=== PATIENT | male | born 1965 | race Caucasian/White ===

== ENCOUNTER 2018-05-21 09:20 | Outpatient (REF) | payer OTHER, SELFPAY ==
[2018-05-21 14:07] LABS: Cholesterol 261 mg/dL (50-200); Glucose 130 mg/dL (70-100); HDL Cholesterol 57 mg/dL (40-60); LDL CHOLESTEROL 185 mg/dL (<100); Triglyceride 109 mg/dL (30-150)
[2018-05-24 10:25] LABS: Hepatitis C Ab w Rflx HCV PCR Negative (NEGAT)
== END 2018-05-21 09:40 ==
LOC: NCHCN 09:20
PROVIDERS: PCP Family Medicine; Visit Provider Family Medicine
DX: Z00.00 Encounter for general adult medical examination without abnormal findings (principal); Z13.1 Encounter for screening for diabetes mellitus; Z11.59 Encounter for screening for other viral diseases; Z13.220 Encounter for screening for lipoid disorders
CPT/HCPCS: 80061; 82947; 83721; 86803

== ENCOUNTER 2018-06-04 08:14 | Outpatient (REF) | payer OTHER, SELFPAY ==
[2018-06-04 13:02] LABS: Cholesterol 234 mg/dL (50-200); Glucose 118 mg/dL (70-100); HDL Cholesterol 41 mg/dL (40-60); LDL CHOLESTEROL 159 mg/dL (<100); Triglyceride 132 mg/dL (30-150)
[2018-06-07 11:52] LABS: Hepatitis C Ab w Rflx HCV PCR Negative (NEGAT)
== END 2018-06-04 08:34 ==
LOC: NCHCN 08:14
PROVIDERS: PCP Family Medicine; Visit Provider Family Medicine
DX: Z00.00 Encounter for general adult medical examination without abnormal findings (principal); Z13.1 Encounter for screening for diabetes mellitus; Z11.59 Encounter for screening for other viral diseases; Z13.220 Encounter for screening for lipoid disorders
CPT/HCPCS: 80061; 82947; 83721; 86803

== ENCOUNTER 2019-05-17 13:44 | Outpatient (REF) | payer OTHER, SELFPAY ==
[2019-05-17 15:09] LABS: Anion Gap 10.9 mmol/L (3-11); BUN 15 mg/dL (7-18); CO2 26.1 mmol/L (21.0-32.0); CREATININE 0.84 mg/dL (0.70-1.30); Calcium 8.9 mg/dL (8.5-10.1); Chloride 105 mmol/L (98-107); Glucose 126 mg/dL (74-106); Potassium 4.4 mmol/L (3.5-5.1); Sodium 142 mmol/L (136-145)
== END 2019-05-17 14:04 ==
LOC: NCHCN 13:44
PROVIDERS: Family Medicine; PCP Nurse Practitioner Family; Visit Provider Nurse Practitioner Family
DX: I10 Essential (primary) hypertension (principal)
CPT/HCPCS: 80048

== ENCOUNTER 2019-08-22 15:19 | Outpatient (REF) | payer OTHER, SELFPAY ==
[2019-08-22 16:22] LABS: Glucose 128 mg/dL (74-106)
== END 2019-08-22 15:39 ==
LOC: NCHCN 15:19
PROVIDERS: PCP Nurse Practitioner Family; Visit Provider Family Medicine
DX: R73.03 Prediabetes (principal)
CPT/HCPCS: 82947

== ENCOUNTER 2020-08-23 01:03 | Outpatient (CLI) | payer OTHER, SELFPAY ==
--- NOTE | 2020-08-23 | DI.RAD_ITS ---
EXAM: XR LUMBAR SPINE COMPLETE CLINICAL HISTORY: LOW BACK PAIN, M54.5. TECHNIQUE: 2D digital imaging was performed. COMPARISON: CT ABD PELVIS WITH CONTRAST from 07/14/2015 FINDINGS: There is no evidence of fracture, listhesis, or pars defects. Moderate disc space narrowing L5-S1 no vineet. Anterior osseous lipping at this level is also noted. Some degenerative changes in the facet j oints at L5-S1 level noted. Also mild facet arthropathy L4-5 level. Facets above this level appear unremarkable. Mild disc space narrowing L3-4 and L4-5. Other disc spaces appear unremarkable. The sacroiliac joints appear unremarkable. There is no scoliosis. No ominous osseous lesions. IMPRESSION: Mild disc space narrowing lower levels as described above. Also mild-moderate facet arthropathy L5-S 1 level. No scoliosis DATA REPOSITORY: RADIATION DOSE DELIVERED:
--- NOTE | 2020-08-23 | DI.RAD_ITS ---
EXAM: XR HIP RT COMPLETE AP PELVIS CLINICAL HISTORY: RT HIP PAIN, M25.551. TECHNIQUE: 2D digital imaging was performed. COMPARISON: No exams were available for comparison FINDINGS: There is no evidence of pelvic or hip fracture. Additional lateral view of the right hip appears unr emarkable. Some calcification in the superolateral aspect of the opposite-left hip is noted which is possibly labral calcification. There is no hip joint space narrowing on either side evident. No om inous osseous lesions. IMPRESSION: DATA REPOSITORY: RADIATION DOSE DELIVERED:
== END 2020-08-23 01:23 ==
PROVIDERS: PCP Nurse Practitioner Family; Visit Provider Physician Assistant
DX: M54.5 Low back pain (principal); M51.37 Other intervertebral disc degeneration, lumbosacral region; M25.551 Pain in right hip
CPT/HCPCS: 72110; 73502

== ENCOUNTER 2020-10-09 00:36 | Outpatient (CLI) | payer OTHER, SELFPAY ==
--- NOTE | 2020-10-09 | DI.MRI_ITS ---
Exam(s) MR LUMBAR SPINE WO EXAM: MR LUMBAR SPINE WO CLINICAL HISTORY: LOW BACK PAIN, M54.5,FAILED PED,RT RADICULAR SYMPTOMS GREATER THAN LT. TECHNIQUE: Multiplanar multisequence MRI of the Lumbar spine was performed. COMPARISON: CR XR LUMBAR SPINE COMPLETE from 08/23/2020 CR XR LUMBAR SPINE COMPLETE from 08/23/2020 FINDINGS: Bones: The last intervertebral disc space is designated the L5/S1 level for the numbering purpose of this examination. The vertebral body heights are well maintained. Alignment is satisfactory. Mild d egenerative endplate signal changes are seen at L4-5 and L5-S1. There is mild disc desiccation from L 3-4 through L5-S1. Cord: The conus tip ends at the L1 level. It is of normal size and signal intensity. T12-L1: No disc herniations or bulges are present. L1-2: No disc herniations or bulges are present. L2-3: No disc herniations or bulges are present. L3-4: There is a diffuse disc bulge. There are hypertrophic changes of the facets. These all contr ibute to cause mild narrowing of the central spinal canal. There is mild bilateral neural foraminal stenosis. L4-5: There is a small central disc herniation. There are hypertrophic changes of the facets. Thes e all contribute to cause mild narrowing of the central spinal canal. There is wqwb-gk-gbfakpxv bila teral neural foraminal stenosis. L5-S1: There is a left paracentral disc herniation with extrusion posterior to the S1 vertebral body . It causes left lateral recess stenosis compressing the left S1 nerve root. There are degenerative changes of the facets. No significant central spinal canal stenosis is present. Moderately severe bilateral neural foraminal stenosis is present. Soft tissues: The visualized SI joints and sacrum are well maintained. The paraspinal soft tissues ar e unremarkable. IMPRESSION: 1. Left paracentral disc herniation with extrusion posterior to the S1 vertebral body. It causes lef t lateral recess stenosis and compresses the left S1 nerve root. 2. Multilevel degenerative changes in the lumbar spine from L3-4 through L5-S1. The findings result in central spinal canal and neural foraminal stenosis as described above. DATA REPOSITORY:
== END 2020-10-09 00:56 ==
PROVIDERS: PCP Nurse Practitioner Family; Visit Provider Physician Assistant
DX: M47.817 Spondylosis without myelopathy or radiculopathy, lumbosacral region (principal); M48.07 Spinal stenosis, lumbosacral region; M51.27 Other intervertebral disc displacement, lumbosacral region
CPT/HCPCS: 72148

== ENCOUNTER 2020-11-12 13:13 | Outpatient (REF) | payer OTHER, SELFPAY ==
[2020-11-12 16:28] LABS: Calculated LDL 144 mg/dL (<100); Cholesterol 213 mg/dL (<200); HDL Cholesterol 57 mg/dL (40-60); Triglyceride 61 mg/dL (<150)
== END 2020-11-12 13:14 | disposition home or self-care (01) ==
LOC: LBN 13:13
PROVIDERS: PCP Nurse Practitioner Family; Visit Provider Family Medicine
DX: I10 Essential (primary) hypertension (principal); E78.5 Hyperlipidemia, unspecified
CPT/HCPCS: 80061; 82565

== ENCOUNTER 2021-11-07 10:18 | Outpatient (REF) | payer OTHER, SELFPAY ==
[2021-11-07 14:58] LABS: HCT 43.4 % (40.0-50.0); HGB 14.5 g/dL (13.5-17.5); MCH 30.1 pg (27.0-33.0); MCHC 33.4 % (32.0-36.0); MCV 90 fL (80-95); MPV 10.6 fL (8.0-11.0); Platelet Count 240 10^3/uL (130-400); RBC 4.82 10^6/uL (4.36-5.78); RDW 12.1 % (11.8-14.1); RDW-SD 40.2 fL
[2021-11-07 16:04] LABS: Hemoglobin A1C 6.3 % (<5.7)
[2021-11-07 16:05] LABS: Calcium 9.2 mg/dL (8.5-10.1); Potassium 4.6 mmol/L (3.5-5.1)
[2021-11-07 16:23] LABS: ALT 39 U/L (16-63); AST 24 U/L (15-37); Alkaline Phosphatase 64 U/L (46-116); Anion Gap 9.8 mmol/L (3-11); BUN 13 mg/dL (7-18); Bilirubin, Total 0.6 mg/dL (0.2-1.0); CO2 26.2 mmol/L (21.0-32.0); CREATININE 1.1 mg/dL (0.70-1.30); Chloride 102 mmol/L (98-107); Glucose 136 mg/dL (74-106); Sodium 138 mmol/L (136-145); Total Protein 7.3 g/dL (6.4-8.2)
== END 2021-11-07 10:19 | disposition home or self-care (01) ==
LOC: NCHCN 10:18
PROVIDERS: PCP Nurse Practitioner Family; Visit Provider Family Medicine
DX: E11.9 Type 2 diabetes mellitus without complications (principal); R42 Dizziness and giddiness
CPT/HCPCS: 80053; 85027; 83036

== ENCOUNTER 2022-08-13 17:34 | Outpatient (REF) | payer OTHER, SELFPAY ==
[2022-08-13 16:00] LABS: Abs Immature Grans 0.02 10^3/uL (0.0-0.06); Absolute Basophil Count 0.04 10^3/uL (0.0-0.2); Absolute Eosinophil Count 0.04 10^3/uL (0.0-0.7); Absolute Lymphocyte Count 1.48 10^3/uL (1.2-3.4); Absolute Monocyte Count 0.49 10^3/uL (0.1-0.8); Absolute Neutrophil Count 4.36 10^3/uL (1.2-6.7); Basophils % 0.6; Eosinophils % 0.6; HCT 43.3 % (40.0-50.0); HGB 14.6 g/dL (13.5-17.5); Immature Grans % 0.3; MCH 30.4 pg (27.0-33.0); MCHC 33.7 % (32.0-36.0); MCV 90 fL (80-95); MPV 10.7 fL (8.0-11.0); Monocytes % 7.6; Neutrophils % 67.9; Platelet Count 239 10^3/uL (130-400); RBC 4.81 10^6/uL (4.36-5.78); RDW 12.7 % (11.8-14.1); RDW-SD 42.4 fL; WBC 6.43 10^3/uL (4.4-10.8)
[2022-08-13 17:07] LABS: ALT 57 U/L (16-63); AST 27 U/L (15-37); Albumin 4.4 g/dL (3.4-5.0); Alkaline Phosphatase 89 U/L (46-116); Anion Gap 7.5 mmol/L (3-11); BUN 15 mg/dL (7-18); Bilirubin, Total 0.6 mg/dL (0.2-1.0); CO2 28.5 mmol/L (21.0-32.0); Calcium 9.3 mg/dL (8.5-10.1); Calculated LDL 128 mg/dL (<100); Chloride 103 mmol/L (98-107); Cholesterol 198 mg/dL (<200); Estimated GFR 87.78 (mL/min/1.73m2); Glucose 122 mg/dL (74-106); HDL Cholesterol 56 mg/dL (40-60); Potassium 4.4 mmol/L (3.5-5.1); Sodium 139 mmol/L (136-145); Triglyceride 74 mg/dL (<150)
== END 2022-08-13 17:35 | disposition home or self-care (01) ==
LOC: NCHCN 17:34
PROVIDERS: Visit Provider Family Medicine
DX: I10 Essential (primary) hypertension (principal); L29.8 Other pruritus; Z00.00 Encounter for general adult medical examination without abnormal findings; E78.5 Hyperlipidemia, unspecified
CPT/HCPCS: 80053; 80061; 85025

== ENCOUNTER → 2023-06-24 00:23 | Outpatient (CLI) | payer OTHER, SELFPAY ==
--- NOTE | 2023-06-24 | DI.MRI_ITS ---
Exam(s) MR LUMBAR SPINE WO EXAM: MR LUMBAR SPINE WO CLINICAL HISTORY: Other spondylosis with radiculopathy, lumbar, M47.26;. TECHNIQUE: Multiplanar multisequence MRI of the Lumbar spine was performed. COMPARISON: CR XR LUMBAR SPINE COMPLETE from 08/23/2020 MR MR LUMBAR SPINE WO from 10/09/2020 FINDINGS: Bones: The last intervertebral disc space is designated the L5/S1 level for the numbering purpose of this examination. The vertebral body heights are well maintained. Alignment is satisfactory. Degene rative endplate signal changes are seen most marked at L5-S1. Cord: The conus tip ends at the L1 level. It is of normal size and signal intensity. T12-L1: No disc herniations or bulges are present. No central spinal canal or neural foraminal stenos is. L1-2: No disc herniations or bulges are present. No central spinal canal or neural foraminal stenosis . L2-3: There is a diffuse disc bulge and facet arthropathy. There is mjyz-uf-ykepkejl narrowing of th e central spinal canal. No significant neural foraminal stenosis is seen. L3-4: There is a diffuse disc bulge. There are hypertrophic changes of the facets and ligamentum fla vum. Moderately severe central spinal canal stenosis is present. Mild right and skws-nk-cfhseobx le ft neural foraminal stenosis is present.There is worsening of the central spinal canal stenosis at th is level compared to 10/09/2020. L4-5: There is a central disc herniation there are degenerative changes of the facets. Vhci-rl-imlre ate central spinal canal stenosis is seen. There is mild bilateral neural foraminal stenosis. L5-S1: There is a moderately large left paracentral disc herniation with extrusion posterior to S1. There is compression of the left S1 nerve root. There are degenerative changes of the facets. There is no significant central spinal canal stenosis. There is moderately severe bilateral neural forami nal stenosis.The degree of neural foraminal stenosis is stable. Soft tissues: The visualized SI joints and sacrum are well maintained. The paraspinal soft tissues ar e unremarkable. IMPRESSION: 1. Multilevel degenerative changes in the lumbar spine from L2-3 through L5-S1 as described above. 2. There has been worsening central spinal canal stenosis at L3-L4 which is now moderately severe. 3. Persistent moderately large left paracentral disc herniation with extrusion posterior to S1 causin g compression of the left S1 nerve root in left lateral recess stenosis. There is persistent moderat toy severe bilateral neural foraminal stenosis. DATA REPOSITORY:
== END ==
PROVIDERS: Visit Provider Nurse Practitioner
DX: M47.26 Other spondylosis with radiculopathy, lumbar region (principal)
CPT/HCPCS: 72148

== ENCOUNTER 2023-12-16 12:28 | Outpatient (REF) | payer OTHER, SELFPAY ==
[2023-12-16 15:41] LABS: Hemoglobin A1C 6.9 % (<5.7)
[2023-12-16 16:01] LABS: COMMENT (LAB VIEW ONLY) 70.88 mg/dL; Microalb ug/mg Crea 4.2 ug/mg Cr
[2023-12-16 16:07] LABS: Calculated LDL 115 mg/dL (<100); Cholesterol 190 mg/dL (<200); HDL Cholesterol 52 mg/dL (40-60); Triglyceride 117 mg/dL (<150)
== END 2023-12-16 12:29 | disposition home or self-care (01) ==
LOC: NCHCN 12:28
PROVIDERS: Visit Provider Student in an Organized Health Care Education/Training Program
DX: E11.9 Type 2 diabetes mellitus without complications (principal); E78.5 Hyperlipidemia, unspecified
CPT/HCPCS: 80061; 82043; 82570; 83036

== ENCOUNTER 2024-07-14 01:00 | Outpatient (CLI) | payer OTHER, SELFPAY ==
--- NOTE | 2024-07-14 | DI.MRI_ITS ---
Exam(s) MR LUMBAR SPINE WO EXAM: MR LUMBAR SPINE WO CLINICAL HISTORY: SPINAL STENOSIS LUMBAR REGION WITH NEUROGENIC CLAUDICATION, M48.062. TECHNIQUE: Multiplanar multisequence MRI of the Lumbar spine was performed. COMPARISON: CR XR LUMBAR SPINE COMPLETE from 08/23/2020 MR MR LUMBAR SPINE WO from 06/24/2023 FINDINGS: Bones: The last intervertebral disc space is designated the L5/S1 level for the numbering purpose of this ex amination. The vertebral body heights are well maintained. Alignment: Unremarkable. The marrow signal characteristics are unremarkable. Cord: The conus tip ends at the L1 level. It is of normal size and signal intensity. T12-L1: No focal disc herniation is present. No central spinal canal stenosis.No neural foraminal st enosis. L1-2: No focal disc herniation is present. No central spinal canal stenosis.No neural foraminal sten osis. L2-3:Mild diffuse disc bulging. Facet degenerative changes and ligamentous hypertrophy. No focal di sc herniation is present. Rxvi-xr-goebbsgj central spinal canal stenosis.No neural foraminal stenos is. L3-4: Slight loss of disc height. Diffuse disc bulging. Facet degenerative changes and ligamentous hypertrophy.No focal disc herniation is present. Severe central spinal canal stenosis which appears worse when compared the previous exam.Mild right and moderate left neural foraminal stenosis. L4-5:Fwsc-mf-oetrjhju loss of disc height. Concentric disc bulging. Small endplate osteophytes. Ce ntral disc herniation with some inferior extrusion of disc material. The inferior extrusion of disc material appears new when compared the previous exam. Facet degenerative changes and ligamentous hyp ertrophy are again noted. Mild central spinal canal stenosis.Mild bilateral neural foraminal stenosi s. L5-S1: Moderate loss of disc height. Small endplate osteophytes. Left paracentral disc herniation with some inferior extrusion appear stable. Again there is left-sided nerve root compression..Facet degenerative changes. No central spinal canal stenosis.Severe bilateral neural foraminal stenosis. The visualized SI joints and sacrum are unremarkable. Soft tissues: The paraspinal soft tissues are unremarkable. IMPRESSION: Severe central canal stenosis at L3-4 has worsened when compared the previous exam. Central disc herniation which at L4-5 which now shows some inferior extrusion of disc material is new from the prior exam. Stable appearance of left paracentral disc herniation with inferior extrusion of disc material at L5- S1. Stable severe bilateral neural foraminal narrowing. DATA REPOSITORY:
== END 2024-07-14 01:20 ==
PROVIDERS: Visit Provider Orthopaedic Surgery
DX: M48.062 Spinal stenosis, lumbar region with neurogenic claudication (principal)
CPT/HCPCS: 72148

== ENCOUNTER 2024-08-19 15:04 | Outpatient (CLI) | payer OTHER, SELFPAY ==
[2024-08-19 15:21] LABS: Abs Immature Grans 0.03 10^3/uL (0.0-0.06); Absolute Basophil Count 0.05 10^3/uL (0.0-0.2); Absolute Eosinophil Count 0.08 10^3/uL (0.0-0.7); Absolute Lymphocyte Count 2.13 10^3/uL (1.2-3.4); Absolute Monocyte Count 0.52 10^3/uL (0.1-0.8); Absolute Neutrophil Count 4.71 10^3/uL (1.2-6.7); Basophils % 0.7 %; Eosinophils % 1.1 %; HCT 42.4 % (40.0-50.0); HGB 14.1 g/dL (13.5-17.5); Immature Grans % 0.4 %; Lymphocytes % 28.3 %; MCH 29.7 pg (27.0-33.0); MCHC 33.3 % (32.0-36.0); MCV 89 fL (80-95); MPV 9.8 fL (8.0-11.0); Monocytes % 6.9 %; Neutrophils % 62.6 %; Platelet Count 239 10^3/uL (130-400); RBC 4.75 10^6/uL (4.36-5.78); RDW 12.2 % (11.8-14.1); RDW-SD 40.3 fL; WBC 7.52 10^3/uL (4.4-10.8)
[2024-08-19 15:40] LABS: BUN 22 mg/dL (7-18); CREATININE 1.1 mg/dL (0.70-1.30); Calcium 9.8 mg/dL (8.5-10.1); Chloride 101 mmol/L (98-107); Estimated GFR 77.33 (mL/min/1.73m2); Glucose 161 mg/dL (74-106); Potassium 4.5 mmol/L (3.5-5.1); Sodium 139 mmol/L (136-145)
== END 2024-08-19 15:05 | disposition home or self-care (01) ==
LOC: LBO 15:05
PROVIDERS: Visit Provider Student in an Organized Health Care Education/Training Program
DX: Z01.818 Encounter for other preprocedural examination (principal)
CPT/HCPCS: 36415; 80048; 85025

== ENCOUNTER 2025-02-13 15:29 | Outpatient (REF) | payer OTHER, SELFPAY ==
[2025-02-13 19:02] LABS: COMMENT (LAB VIEW ONLY) 13.67 mg/dL
== END 2025-02-13 15:30 | disposition home or self-care (01) ==
LOC: NCHCN 15:29
PROVIDERS: Visit Provider Student in an Organized Health Care Education/Training Program
DX: E11.9 Type 2 diabetes mellitus without complications (principal)
CPT/HCPCS: 82043; 82570